=== PATIENT | female | born 1940 | race African-American/Black ===

== ENCOUNTER 2020-07-03 12:02 | Emergency (ER) | payer OTHER ==
[~2020-07-03] VITALS: Ht 162.6 cm; Wt 55.0 kg
[2020-07-03] MEDS ORDERED: SODIUM CHLORIDE 0.9% 1,000 ML IV ONE (12:30)
[2020-07-03 12:42] LABS: BASOPHILS % 0.3 % (0.0-2.0); EOSINOPHILS % 0.1 % (0.0-5.0); HEMATOCRIT. 47.1 % (36.0-48.0); HEMOGLOBIN. 15.2 g/dL (12.0-16.0); LYMPHOCYTES % 15.2 % (20.0-50.0); MEAN CORPUSCULAR HEMOGLOBIN 27.5 pg (28.0-32.0); MEAN CORPUSCULAR VOLUME 85.5 fL (81.0-99.0); MONOCYTES % 3.3 % (2.0-8.0); NEUTROPHILS % 81.1 % (40.0-76.0); PLATELET 127 x1000/uL (130-400); RED BLOOD CELL COUNT 5.51 mill/uL (4.2-5.4); RED CELL DISTRIBUTION WIDTH 16.3 % (11.6-14.6)
[2020-07-03 12:51] LABS: CHLORIDE 107 mEq/L (98-107)
[2020-07-03 15:42] LABS: CLARITY URINE CLOUDY (CLEAR); COLOR URINE DK YELLOW (YELLOW); KETONES URINE TRACE (NEGATIVE); LEUKOCYTE ESTERASE URINE NEGATIVE (NEGATIVE); NITRITE URINE NEGATIVE (NEGATIVE); OCCULT BLOOD URINE NEGATIVE (NEGATIVE); PROTEIN URINE 3+ (NEGATIVE); SPECIFIC GRAVITY URINE 1.023 (1.005-1.030)
[2020-07-03 17:29] VITALS: BP 178/94
== END 2020-07-03 17:30 | disposition short-term general hospital (02) ==
LOC: ER 12:08
DX: N28.9 Disorder of kidney and ureter, unspecified (principal); E86.0 Dehydration; R53.1 Weakness; I48.91 Unspecified atrial fibrillation; J44.9 Chronic obstructive pulmonary disease, unspecified; E11.9 Type 2 diabetes mellitus without complications; I10 Essential (primary) hypertension; J45.909 Unspecified asthma, uncomplicated; Z86.73 Personal history of transient ischemic attack (TIA), and cerebral infarction without residual deficits; Z79.01 Long term (current) use of anticoagulants
CPT/HCPCS: 36415; 71045; 80053; 81003; 84484; 85025; 93005; 96360; 96361; 99285; J7030

== ENCOUNTER 2020-07-22 10:11 | Emergency (ER) | payer OTHER, MEDICARE ==
[~2020-07-22] VITALS: Ht 165.1 cm; Wt 70.0 kg
[2020-07-22 11:00] LABS: BASOPHILS % 0.5 % (0.0-2.0); EOSINOPHILS % 0.7 % (0.0-5.0); HEMATOCRIT. 41.5 % (36.0-48.0); HEMOGLOBIN. 13.4 g/dL (12.0-16.0); LYMPHOCYTES % 20.8 % (20.0-50.0); MEAN CORPUSCULAR HEMOGLOBIN 27.5 pg (28.0-32.0); MEAN CORPUSCULAR VOLUME 85.3 fL (81.0-99.0); MEAN PLATELET VOLUME 8.1 fl (7.4-10.4); MONOCYTES % 8.3 % (2.0-8.0); NEUTROPHILS % 69.7 % (40.0-76.0); PLATELET 131 x1000/uL (130-400); RED BLOOD CELL COUNT 4.87 mill/uL (4.2-5.4); RED CELL DISTRIBUTION WIDTH 17.7 % (11.6-14.6)
[2020-07-22 11:07] LABS: CHLORIDE 105 mEq/L (98-107)
[2020-07-22] MEDS ORDERED: AZITHROMYCIN 500 MG in DEXT 5% WATER 250 ML IV SCH (11:30)
[2020-07-22] MEDS ORDERED: CEFTRIAXONE 1 G PREMIX 50 ML IV ONE (11:30)
[2020-07-22 16:30] VITALS: BP 148/79
== END 2020-07-22 18:20 | disposition short-term general hospital (02) ==
LOC: ER 10:33
DX: R41.82 Altered mental status, unspecified (principal); J18.9 Pneumonia, unspecified organism; I10 Essential (primary) hypertension; E11.9 Type 2 diabetes mellitus without complications; I48.91 Unspecified atrial fibrillation; Z20.822 Contact with and (suspected) exposure to COVID-19; Z88.8 Allergy status to other drugs, medicaments and biological substances; Z86.73 Personal history of transient ischemic attack (TIA), and cerebral infarction without residual deficits
CPT/HCPCS: 36415; 70450; 71045; 80053; 83880; 84484; 85025; 87426; 93005; 96365; 99285; J0456; J0696; J7060

== ENCOUNTER 2020-09-03 17:11 | Inpatient (IN) | payer MEDICARE, OTHER ==
[~2020-09-03] VITALS: Ht 165.1 cm; Wt 55.4 kg
[2020-09-03] MEDS ORDERED: ONDANSETRON HCL 4MG/2ML INJ IV STA (17:46)
[2020-09-03] MEDS ORDERED: MORPHINE SULFATE 4 MG/ML CPJ (NOT FOR IM USE) IV STA (17:46)
[2020-09-03 18:47] LABS: BASOPHILS % 0.2 % (0.0-2.0); EOSINOPHILS % 0.1 % (0.0-5.0); HEMATOCRIT. 32.5 % (36.0-48.0); HEMOGLOBIN. 10.6 g/dL (12.0-16.0); LYMPHOCYTES % 14.2 % (20.0-50.0); MEAN CORPUSCULAR HEMOGLOBIN 28.4 pg (28.0-32.0); MEAN CORPUSCULAR VOLUME 87.2 fL (81.0-99.0); MEAN PLATELET VOLUME 8.1 fl (7.4-10.4); MONOCYTES % 3.7 % (2.0-8.0); NEUTROPHILS % 81.8 % (40.0-76.0); PLATELET 156 x1000/uL (130-400); RED BLOOD CELL COUNT 3.72 mill/uL (4.2-5.4); RED CELL DISTRIBUTION WIDTH 18.3 % (11.6-14.6)
[2020-09-03 18:53] LABS: CHLORIDE 102 mEq/L (98-107)
[2020-09-03 18:56] LABS: INR 1.2
[2020-09-03 18:58] LABS: ETHANOL BLOOD < 10 mg/dL
[2020-09-03] MEDS ORDERED: FUROSEMIDE 20MG/2ML VIAL IVP ONE (22:00)
[2020-09-03] MEDS ORDERED: LEVOFLOXACIN 750MG PREMIX 150 ML IV ONE (22:00)
[2020-09-03 22:02] LABS: CLARITY URINE TURBID (CLEAR); COLOR URINE YELLOW (YELLOW); KETONES URINE NEGATIVE (NEGATIVE); LEUKOCYTE ESTERASE URINE NEGATIVE (NEGATIVE); NITRITE URINE NEGATIVE (NEGATIVE); OCCULT BLOOD URINE NEGATIVE (NEGATIVE); PROTEIN URINE 2+ (NEGATIVE); SPECIFIC GRAVITY URINE 1.015 (1.005-1.030); UROBILINOGEN URINE 0.2 E.U./dL (0.2-1.0)
[2020-09-03 22:15] LABS: *AMPHETAMINES SCREEN URINE NEGATIVE (NEGATIVE)
[2020-09-03 22:16] LABS: *BARBITURATES SCREEN URINE NEGATIVE (NEGATIVE); *BENZODIAZEPINES SCREEN URINE NEGATIVE (NEGATIVE); *COCAINE SCREEN URINE NEGATIVE (NEGATIVE); METHADONE URINE SCREEN NEGATIVE (NEGATIVE); OPIATES URINE SCREEN NEGATIVE (NEGATIVE); PHENCYCLIDINE URINE SCREEN NEGATIVE (NEGATIVE)
[2020-09-03 22:17] LABS: CANNABINOID URINE SCREEN NEGATIVE (NEGATIVE)
[2020-09-04] VITALS (7 sets, daily range): BP systolic 116–135; BP diastolic 49–80
[2020-09-04] MEDS ORDERED: MORPHINE SULFATE 2 MG/ML CPJ (NOT FOR IM USE) IV PRN (03:45)
[2020-09-04] MEDS ORDERED: ALBUTEROL 6.7GM HFA INHALER ORI PRN (03:45)
[2020-09-04] MEDS ORDERED: CLONIDINE 0.1MG TABLET PO PRN (03:45)
[2020-09-04 10:10] LABS: BASOPHILS % 0.1 % (0.0-2.0); HEMATOCRIT. 30.1 % (36.0-48.0); HEMOGLOBIN. 9.5 g/dL (12.0-16.0); LYMPHOCYTES % 10.5 % (20.0-50.0); MEAN CORPUSCULAR HEMOGLOBIN 28.3 pg (28.0-32.0); MEAN CORPUSCULAR VOLUME 89.3 fL (81.0-99.0); MEAN PLATELET VOLUME 7.9 fl (7.4-10.4); MONOCYTES % 6.9 % (2.0-8.0); NEUTROPHILS % 82.5 % (40.0-76.0); PLATELET 133 x1000/uL (130-400); RED BLOOD CELL COUNT 3.37 mill/uL (4.2-5.4); RED CELL DISTRIBUTION WIDTH 17.9 % (11.6-14.6)
[2020-09-04 10:14] LABS: CHLORIDE 104 mEq/L (98-107)
[2020-09-04 10:25] LABS: CREATINE KINASE 44 IU/L (26-192)
[2020-09-04 10:27] LABS: CREATINE KINASE MB FRACTION 2.2 ng/mL (0.5-3.6)
[2020-09-04] MEDS ORDERED: ENOXAPARIN 30MG/0.3ML SYR SUBCUT SCH (13:00)
[2020-09-04] MEDS: PIPERACILLIN/TAZOBACTAM 3.375 G in DEXT 5% WATER 100 ML IV SCH ×2 (14:25→20:05)
[2020-09-04] MEDS ORDERED: DEXTROSE 50% WATER 50ML SYRINGE IV PRN (18:00)
[2020-09-04] MEDS: INSULIN LISPRO 100 UNITS/ML SUBCUT SCH ×2 (18:20→20:42)
[2020-09-04] MEDS: BLOOD SUGAR DIAGNOSTIC STRIP TEST SCH ×2 (18:30→20:43)
[2020-09-04] MEDS ORDERED: ENOXAPARIN 40MG/0.4ML SYR SUBCUT NR (19:00)
[2020-09-04 23:15] LABS: CREATINE KINASE 42 IU/L (26-192)
[2020-09-05] VITALS (11 sets, daily range): BP systolic 92–149; BP diastolic 54–108
[2020-09-05] MEDS: FUROSEMIDE 40MG/4ML VIAL IVP SCH ×2 (02:05→05:18)
[2020-09-05] MEDS: PIPERACILLIN/TAZOBACTAM 3.375 G in DEXT 5% WATER 100 ML IV SCH ×4 (02:05→20:20)
[2020-09-05 06:26] LABS: CREATINE KINASE 103 IU/L (26-192); CREATINE KINASE MB FRACTION 2.1 ng/mL (0.5-3.6)
[2020-09-05] MEDS: BLOOD SUGAR DIAGNOSTIC STRIP TEST SCH ×4 (07:37→20:20)
[2020-09-05] MEDS: INSULIN LISPRO 100 UNITS/ML SUBCUT SCH ×4 (07:38→20:20)
[2020-09-05] MEDS ORDERED: FUROSEMIDE 40MG/4ML VIAL IVP SCH (09:00)
[2020-09-05] MEDS: ENOXAPARIN 60MG/0.6ML SYR SUBCUT SCH (09:00)
[2020-09-05 09:08] LABS: BG BASE EXCESS 1.3 mmol/L (-2.0-2.0); BG CARBOXYHEMOGLOBIN 0.1 % (0.5-1.5); BG DEOXYHEMOGLOBIN 8.7 % (0.0-5.0); BG FRACTION INSPIRED OXYGEN 99.8; BG HCO3 ACT 29.8 mmol/L (22.0-26.0); BG METHEMOGLOBIN 0.4 % (0.0-1.5); BG OXYGEN SATURATION 91.3 % (92.0-98.5); BG OXYHEMOGLOBIN 90.8 % (94.0-97.0); BG PCO2 69.2 mmHg (35.0-45.0); BG PH 7.252 (7.350-7.450); BG PO2 63.1 mmHg (75.0-100.0); BG SAMPLE SITE LEFT RADIAL; BG TOTAL HEMOGLOBIN 10.8 g/dL (12.0-18.0); BG VENT MODE MASK - NRB
[2020-09-05 12:10] LABS: BASOPHILS % 0.4 % (0.0-2.0); EOSINOPHILS % 0.2 % (0.0-5.0); HEMATOCRIT. 31.1 % (36.0-48.0); HEMOGLOBIN. 9.6 g/dL (12.0-16.0); LYMPHOCYTES % 14.3 % (20.0-50.0); MEAN CORPUSCULAR HEMOGLOBIN 28.3 pg (28.0-32.0); MEAN CORPUSCULAR VOLUME 92.1 fL (81.0-99.0); MONOCYTES % 8.6 % (2.0-8.0); NEUTROPHILS % 76.5 % (40.0-76.0); PLATELET 135 x1000/uL (130-400); RED BLOOD CELL COUNT 3.38 mill/uL (4.2-5.4); RED CELL DISTRIBUTION WIDTH 18.7 % (11.6-14.6)
[2020-09-05] MEDS: FUROSEMIDE 100MG/10ML VIAL IVP SCH ×2 (14:49→17:35)
[2020-09-05] MEDS ORDERED: ENOXAPARIN 80MG/0.8ML SYR SUBCUT SCH (15:00)
[2020-09-05 17:38] LABS: BG BASE EXCESS 4.5 mmol/L (-2.0-2.0); BG CARBOXYHEMOGLOBIN 0.5 % (0.5-1.5); BG DEOXYHEMOGLOBIN 11.4 % (0.0-5.0); BG FRACTION INSPIRED OXYGEN 100; BG HCO3 ACT 31.5 mmol/L (22.0-26.0); BG METHEMOGLOBIN 0.4 % (0.0-1.5); BG OXYGEN SATURATION 88.5 % (92.0-98.5); BG OXYHEMOGLOBIN 87.7 % (94.0-97.0); BG PCO2 59.4 mmHg (35.0-45.0); BG PH 7.343 (7.350-7.450); BG PO2 53.2 mmHg (75.0-100.0); BG SAMPLE SITE RIGHT BRACHIAL; BG TOTAL HEMOGLOBIN 11.2 g/dL (12.0-18.0); BG VENT MODE MASK - BIPAP
[2020-09-05] MEDS ORDERED: FUROSEMIDE 100MG/10ML VIAL IVP SCH (18:00)
[2020-09-05 23:13] LABS: BG BASE EXCESS 4.9 mmol/L (-2.0-2.0); BG CARBOXYHEMOGLOBIN 0.1 % (0.5-1.5); BG FRACTION INSPIRED OXYGEN 100; BG METHEMOGLOBIN 0.3 % (0.0-1.5); BG OXYGEN SATURATION 84.9 % (92.0-98.5); BG OXYHEMOGLOBIN 84.6 % (94.0-97.0); BG PH 7.423 (7.350-7.450); BG PO2 44.5 mmHg (75.0-100.0); BG SAMPLE SITE RIGHT BRACHIAL; BG TOTAL HEMOGLOBIN 10.7 g/dL (12.0-18.0); BG VENT MODE MASK - BIPAP
[2020-09-06] VITALS (50 sets, daily range): BP systolic 101–164; BP diastolic 58–105
[2020-09-06] MEDS ORDERED: ALBUTEROL (0.083%) 2.5MG/3ML NEB HHN PRN (00:15)
[2020-09-06] MEDS: PIPERACILLIN/TAZOBACTAM 3.375 G in DEXT 5% WATER 100 ML IV SCH ×4 (01:41→21:10)
[2020-09-06] MEDS: FUROSEMIDE 100MG/10ML VIAL IVP SCH ×2 (05:15→18:25)
[2020-09-06 06:05] LABS: BASOPHILS % 0.2 % (0.0-2.0); EOSINOPHILS % 0.1 % (0.0-5.0); HEMATOCRIT. 34.6 % (36.0-48.0); HEMOGLOBIN. 10.7 g/dL (12.0-16.0); LYMPHOCYTES % 15.5 % (20.0-50.0); MEAN CORPUSCULAR HEMOGLOBIN 27.6 pg (28.0-32.0); MEAN PLATELET VOLUME 7.8 fl (7.4-10.4); MONOCYTES % 7.9 % (2.0-8.0); NEUTROPHILS % 76.3 % (40.0-76.0); PLATELET 147 x1000/uL (130-400); RED BLOOD CELL COUNT 3.88 mill/uL (4.2-5.4); RED CELL DISTRIBUTION WIDTH 18.1 % (11.6-14.6)
[2020-09-06] MEDS: BLOOD SUGAR DIAGNOSTIC STRIP TEST SCH ×4 (06:30→21:10)
[2020-09-06] MEDS: INSULIN LISPRO 100 UNITS/ML SUBCUT SCH ×4 (07:00→21:00)
[2020-09-06] MEDS: ENOXAPARIN 60MG/0.6ML SYR SUBCUT SCH (08:54)
[2020-09-06] MEDS ORDERED: LIDOCAINE HCL 1% 20ML VIAL (Pyxis) INJ ONE (09:21)
[2020-09-06] MEDS ORDERED: HYDRALAZINE 20MG/ML VIAL IV PRN (12:30)
[2020-09-06] MEDS: AMLODIPINE 10MG TABLET PO SCH (12:36)
[2020-09-06] MEDS: SILDENAFIL CITRATE 20MG TABLET PO SCH ×2 (13:35→21:09)
[2020-09-07] VITALS (47 sets, daily range): BP systolic 116–156; BP diastolic 58–98
[2020-09-07] MEDS: PIPERACILLIN/TAZOBACTAM 3.375 G in DEXT 5% WATER 100 ML IV SCH ×4 (01:48→20:14)
[2020-09-07 05:31] LABS: BASOPHILS % 0.3 % (0.0-2.0); EOSINOPHILS % 0.6 % (0.0-5.0); HEMATOCRIT. 29.1 % (36.0-48.0); HEMOGLOBIN. 9.5 g/dL (12.0-16.0); MEAN CORPUSCULAR VOLUME 85.7 fL (81.0-99.0); MEAN PLATELET VOLUME 8.2 fl (7.4-10.4); MONOCYTES % 10.2 % (2.0-8.0); NEUTROPHILS % 74.9 % (40.0-76.0); PLATELET 125 x1000/uL (130-400); RED CELL DISTRIBUTION WIDTH 17.6 % (11.6-14.6)
[2020-09-07] MEDS: FUROSEMIDE 100MG/10ML VIAL IVP SCH ×2 (06:00→17:41)
[2020-09-07] MEDS: SILDENAFIL CITRATE 20MG TABLET PO SCH ×2 (06:23→14:25)
[2020-09-07] MEDS: INSULIN LISPRO 100 UNITS/ML SUBCUT SCH ×4 (06:25→21:00)
[2020-09-07] MEDS: BLOOD SUGAR DIAGNOSTIC STRIP TEST SCH ×4 (06:25→21:00)
[2020-09-07 07:38] LABS: BG BASE EXCESS 13.9 mmol/L (-2.0-2.0); BG CARBOXYHEMOGLOBIN 0.3 % (0.5-1.5); BG DEOXYHEMOGLOBIN 9.9 % (0.0-5.0); BG HCO3 ACT 38.6 mmol/L (22.0-26.0); BG METHEMOGLOBIN 0.3 % (0.0-1.5); BG OXYHEMOGLOBIN 89.5 % (94.0-97.0); BG PCO2 49.2 mmHg (35.0-45.0); BG PH 7.512 (7.350-7.450); BG PO2 52.9 mmHg (75.0-100.0); BG SAMPLE SITE RIGHT BRACHIAL; BG TOTAL HEMOGLOBIN 10.2 g/dL (12.0-18.0); BG VENT MODE MASK - SIMPLE
[2020-09-07] MEDS: ENOXAPARIN 60MG/0.6ML SYR SUBCUT SCH (08:33)
[2020-09-07] MEDS: AMLODIPINE 10MG TABLET PO SCH (09:51)
[2020-09-07] MEDS: POTASSIUM CHLORIDE 20MEQ TABLET SR PO SCH (09:51)
[2020-09-07] MEDS ORDERED: POTASSIUM CHLORIDE INJ 40 MEQ in DEXT 5% WATER 250 ML IV NR (10:30)
[2020-09-07] MEDS ORDERED: MAGNESIUM 4 G PREMIX 100 ML IV NR (14:00)
[2020-09-08] VITALS (16 sets, daily range): BP systolic 98–142; BP diastolic 54–88
[2020-09-08] MEDS: SILDENAFIL CITRATE 20MG TABLET PO SCH ×4 (00:22→21:33)
[2020-09-08] MEDS: PIPERACILLIN/TAZOBACTAM 3.375 G in DEXT 5% WATER 100 ML IV SCH ×4 (02:06→21:01)
[2020-09-08] MEDS: BLOOD SUGAR DIAGNOSTIC STRIP TEST SCH ×4 (06:19→21:01)
[2020-09-08 06:47] LABS: BASOPHILS % 0.3 % (0.0-2.0); HEMATOCRIT. 29.8 % (36.0-48.0); HEMOGLOBIN. 9.8 g/dL (12.0-16.0); LYMPHOCYTES % 13.8 % (20.0-50.0); MEAN CORPUSCULAR HEMOGLOBIN 28.4 pg (28.0-32.0); MEAN CORPUSCULAR VOLUME 86.1 fL (81.0-99.0); MEAN PLATELET VOLUME 8.1 fl (7.4-10.4); MONOCYTES % 9.1 % (2.0-8.0); NEUTROPHILS % 75.8 % (40.0-76.0); PLATELET 121 x1000/uL (130-400); RED BLOOD CELL COUNT 3.47 mill/uL (4.2-5.4); RED CELL DISTRIBUTION WIDTH 17.6 % (11.6-14.6)
[2020-09-08] MEDS: INSULIN LISPRO 100 UNITS/ML SUBCUT SCH ×4 (07:20→21:00)
[2020-09-08] MEDS: FUROSEMIDE 100MG/10ML VIAL IVP SCH ×2 (07:53→17:23)
[2020-09-08 08:09] LABS: CHLORIDE 91 mEq/L (98-107)
[2020-09-08] MEDS: POTASSIUM CHLORIDE 20MEQ TABLET SR PO SCH ×3 (08:12→17:24)
[2020-09-08] MEDS: AMLODIPINE 10MG TABLET PO SCH (08:13)
[2020-09-08] MEDS: ENOXAPARIN 60MG/0.6ML SYR SUBCUT SCH ×2 (08:14→21:02)
[2020-09-08] MEDS ORDERED: POTASSIUM CHLORIDE INJ 40 MEQ in DEXT 5% WATER 250 ML IV NR (12:00)
[2020-09-09] VITALS (12 sets, daily range): BP systolic 108–138; BP diastolic 54–87
[2020-09-09] MEDS: PIPERACILLIN/TAZOBACTAM 3.375 G in DEXT 5% WATER 100 ML IV SCH ×3 (02:04→13:45)
[2020-09-09] MEDS: FUROSEMIDE 100MG/10ML VIAL IVP SCH ×2 (06:16→17:55)
[2020-09-09] MEDS: BLOOD SUGAR DIAGNOSTIC STRIP TEST SCH ×4 (06:17→21:09)
[2020-09-09] MEDS: SILDENAFIL CITRATE 20MG TABLET PO SCH ×3 (06:17→21:49)
[2020-09-09 06:58] LABS: BASOPHILS % 0.4 % (0.0-2.0); EOSINOPHILS % 1.8 % (0.0-5.0); HEMATOCRIT. 30.7 % (36.0-48.0); HEMOGLOBIN. 10.3 g/dL (12.0-16.0); LYMPHOCYTES % 21.7 % (20.0-50.0); MEAN CORPUSCULAR VOLUME 86.7 fL (81.0-99.0); MEAN PLATELET VOLUME 8.5 fl (7.4-10.4); MONOCYTES % 8.8 % (2.0-8.0); NEUTROPHILS % 67.3 % (40.0-76.0); PLATELET 124 x1000/uL (130-400); RED BLOOD CELL COUNT 3.54 mill/uL (4.2-5.4); RED CELL DISTRIBUTION WIDTH 17.4 % (11.6-14.6)
[2020-09-09 07:03] LABS: CHLORIDE 92 mEq/L (98-107)
[2020-09-09] MEDS: INSULIN LISPRO 100 UNITS/ML SUBCUT SCH ×4 (07:20→21:00)
[2020-09-09] MEDS: POTASSIUM CHLORIDE 20MEQ TABLET SR PO SCH ×2 (09:03→17:53)
[2020-09-09] MEDS: ENOXAPARIN 60MG/0.6ML SYR SUBCUT SCH ×2 (09:03→21:09)
[2020-09-09] MEDS: AMLODIPINE 10MG TABLET PO SCH (09:04)
[2020-09-09] MEDS: SPIRONOLACTONE 25MG TABLET PO SCH (13:22)
[2020-09-10] VITALS (12 sets, daily range): BP systolic 114–165; BP diastolic 37–89
[2020-09-10] MEDS: FUROSEMIDE 100MG/10ML VIAL IVP SCH ×2 (05:58→17:12)
[2020-09-10] MEDS: SILDENAFIL CITRATE 20MG TABLET PO SCH ×3 (05:59→21:07)
[2020-09-10] MEDS: BLOOD SUGAR DIAGNOSTIC STRIP TEST SCH ×4 (06:38→20:42)
[2020-09-10] MEDS: INSULIN LISPRO 100 UNITS/ML SUBCUT SCH ×4 (07:20→20:43)
[2020-09-10 07:22] LABS: BASOPHILS % 0.6 % (0.0-2.0); EOSINOPHILS % 1.7 % (0.0-5.0); HEMATOCRIT. 32.3 % (36.0-48.0); HEMOGLOBIN. 10.7 g/dL (12.0-16.0); LYMPHOCYTES % 23.9 % (20.0-50.0); MEAN CORPUSCULAR HEMOGLOBIN 28.7 pg (28.0-32.0); MEAN CORPUSCULAR VOLUME 86.7 fL (81.0-99.0); MEAN PLATELET VOLUME 8.1 fl (7.4-10.4); MONOCYTES % 10.2 % (2.0-8.0); NEUTROPHILS % 63.6 % (40.0-76.0); PLATELET 120 x1000/uL (130-400); RED BLOOD CELL COUNT 3.72 mill/uL (4.2-5.4); RED CELL DISTRIBUTION WIDTH 17.6 % (11.6-14.6)
[2020-09-10] MEDS: POTASSIUM CHLORIDE 20MEQ TABLET SR PO SCH ×2 (09:02→17:12)
[2020-09-10] MEDS: SPIRONOLACTONE 25MG TABLET PO SCH (09:03)
[2020-09-10] MEDS: AMLODIPINE 10MG TABLET PO SCH (09:03)
[2020-09-10] MEDS: ENOXAPARIN 60MG/0.6ML SYR SUBCUT SCH ×2 (09:03→21:08)
[2020-09-10 12:29] LABS: BG BASE EXCESS 17.3 mmol/L (-2.0-2.0); BG CARBOXYHEMOGLOBIN 0.2 % (0.5-1.5); BG DEOXYHEMOGLOBIN 5.8 % (0.0-5.0); BG FRACTION INSPIRED OXYGEN 32; BG HCO3 ACT 43.5 mmol/L (22.0-26.0); BG METHEMOGLOBIN 0.6 % (0.0-1.5); BG OXYGEN SATURATION 94.2 % (92.0-98.5); BG OXYHEMOGLOBIN 93.4 % (94.0-97.0); BG PCO2 58.6 mmHg (35.0-45.0); BG PH 7.488 (7.350-7.450); BG PO2 67.9 mmHg (75.0-100.0); BG SAMPLE SITE RIGHT RADIAL; BG TOTAL HEMOGLOBIN 12.1 g/dL (12.0-18.0); BG VENT MODE NASAL CANNULA
[2020-09-11] VITALS (13 sets, daily range): BP systolic 110–164; BP diastolic 58–106
[2020-09-11] MEDS: FUROSEMIDE 100MG/10ML VIAL IVP SCH (05:58)
[2020-09-11] MEDS: SILDENAFIL CITRATE 20MG TABLET PO SCH ×3 (05:59→22:01)
[2020-09-11 06:19] LABS: BASOPHILS % 0.7 % (0.0-2.0); EOSINOPHILS % 1.5 % (0.0-5.0); HEMATOCRIT. 33.5 % (36.0-48.0); LYMPHOCYTES % 26.5 % (20.0-50.0); MEAN CORPUSCULAR HEMOGLOBIN 28.5 pg (28.0-32.0); MEAN CORPUSCULAR VOLUME 86.5 fL (81.0-99.0); MEAN PLATELET VOLUME 8.4 fl (7.4-10.4); MONOCYTES % 13.1 % (2.0-8.0); NEUTROPHILS % 58.2 % (40.0-76.0); PLATELET 135 x1000/uL (130-400); RED BLOOD CELL COUNT 3.87 mill/uL (4.2-5.4); RED CELL DISTRIBUTION WIDTH 17.9 % (11.6-14.6)
[2020-09-11] MEDS: BLOOD SUGAR DIAGNOSTIC STRIP TEST SCH ×4 (06:26→20:36)
[2020-09-11] MEDS: INSULIN LISPRO 100 UNITS/ML SUBCUT SCH ×4 (07:20→20:47)
[2020-09-11] MEDS: ENOXAPARIN 60MG/0.6ML SYR SUBCUT SCH ×2 (09:00→20:46)
[2020-09-11 09:43] LABS: BG BASE EXCESS 10.9 mmol/L (-2.0-2.0); BG CARBOXYHEMOGLOBIN 0.6 % (0.5-1.5); BG DEOXYHEMOGLOBIN 8.8 % (0.0-5.0); BG FRACTION INSPIRED OXYGEN 32; BG HCO3 ACT 36.1 mmol/L (22.0-26.0); BG METHEMOGLOBIN 0.2 % (0.0-1.5); BG OXYGEN SATURATION 91.1 % (92.0-98.5); BG OXYHEMOGLOBIN 90.4 % (94.0-97.0); BG PCO2 50.8 mmHg (35.0-45.0); BG PO2 60.3 mmHg (75.0-100.0); BG SAMPLE SITE LEFT BRACHIAL; BG TOTAL HEMOGLOBIN 11.8 g/dL (12.0-18.0); BG VENT MODE NASAL CANNULA
[2020-09-11] MEDS: AMLODIPINE 10MG TABLET PO SCH (10:24)
[2020-09-11] MEDS: POTASSIUM CHLORIDE 20MEQ TABLET SR PO SCH ×2 (10:25→17:00)
[2020-09-11] MEDS: SPIRONOLACTONE 25MG TABLET PO SCH (10:25)
[2020-09-11] MEDS ORDERED: IPRATROPIUM/ALBUTEROL 0.5-3(2.5)MG/3ML NEB HHN PRN (14:00)
[2020-09-11 15:16] LABS: BG BASE EXCESS 15.9 mmol/L (-2.0-2.0); BG CARBOXYHEMOGLOBIN 0.5 % (0.5-1.5); BG FRACTION INSPIRED OXYGEN 21; BG HCO3 ACT 39.7 mmol/L (22.0-26.0); BG METHEMOGLOBIN 0.3 % (0.0-1.5); BG OXYGEN SATURATION 69.8 % (92.0-98.5); BG OXYHEMOGLOBIN 69.2 % (94.0-97.0); BG PCO2 44.2 mmHg (35.0-45.0); BG PH 7.571 (7.350-7.450); BG PO2 33.4 mmHg (75.0-100.0); BG SAMPLE SITE LEFT RADIAL; BG TOTAL HEMOGLOBIN 12.1 g/dL (12.0-18.0); BG VENT MODE ROOM AIR
[2020-09-11] MEDS: FUROSEMIDE 40MG/4ML VIAL IVP SCH (18:31)
[2020-09-11] MEDS: IPRATROPIUM/ALBUTEROL 0.5-3(2.5)MG/3ML NEB HHN SCH (21:30)
[2020-09-12] VITALS (14 sets, daily range): BP systolic 103–143; BP diastolic 39–84
[2020-09-12] MEDS: IPRATROPIUM/ALBUTEROL 0.5-3(2.5)MG/3ML NEB HHN SCH ×4 (02:04→20:27)
[2020-09-12] MEDS: FUROSEMIDE 40MG/4ML VIAL IVP SCH ×2 (05:26→18:16)
[2020-09-12] MEDS: SILDENAFIL CITRATE 20MG TABLET PO SCH ×3 (05:27→22:41)
[2020-09-12] MEDS: BLOOD SUGAR DIAGNOSTIC STRIP TEST SCH ×4 (06:26→21:02)
[2020-09-12] MEDS: INSULIN LISPRO 100 UNITS/ML SUBCUT SCH ×4 (07:20→21:13)
[2020-09-12] MEDS: AMLODIPINE 10MG TABLET PO SCH (09:00)
[2020-09-12] MEDS: ENOXAPARIN 60MG/0.6ML SYR SUBCUT SCH ×2 (09:33→21:02)
[2020-09-12] MEDS: SPIRONOLACTONE 25MG TABLET PO SCH (09:33)
[2020-09-12] MEDS: POTASSIUM CHLORIDE 20MEQ TABLET SR PO SCH ×2 (09:34→17:47)
[2020-09-12] MEDS: PIPERACILLIN/TAZOBACTAM 2.25 G in DEXTROSE 5% WATER 50 ML IV SCH ×2 (11:55→18:16)
[2020-09-12] MEDS ORDERED: PIPERACILLIN/TAZOBACTAM 3.375 G/VIAL IV SCH (12:00)
[2020-09-12] MEDS: METOPROLOL TARTRATE 25MG TABLET PO SCH ×2 (17:47→23:00)
[2020-09-13] VITALS (12 sets, daily range): BP systolic 102–138; BP diastolic 51–84
[2020-09-13] MEDS: IPRATROPIUM/ALBUTEROL 0.5-3(2.5)MG/3ML NEB HHN SCH ×3 (00:54→20:21)
[2020-09-13] MEDS: BLOOD SUGAR DIAGNOSTIC STRIP TEST SCH ×4 (05:52→21:09)
[2020-09-13] MEDS: SILDENAFIL CITRATE 20MG TABLET PO SCH ×3 (05:52→22:48)
[2020-09-13] MEDS: INSULIN LISPRO 100 UNITS/ML SUBCUT SCH ×4 (07:20→21:00)
[2020-09-13] MEDS: POTASSIUM CHLORIDE 20MEQ TABLET SR PO SCH ×2 (07:59→18:31)
[2020-09-13] MEDS: FUROSEMIDE 40MG TABLET PO SCH ×2 (08:00→18:31)
[2020-09-13] MEDS: AMLODIPINE 10MG TABLET PO SCH (08:00)
[2020-09-13] MEDS: METOPROLOL TARTRATE 25MG TABLET PO SCH ×2 (08:00→21:08)
[2020-09-13] MEDS: SPIRONOLACTONE 25MG TABLET PO SCH (08:00)
[2020-09-13] MEDS: ENOXAPARIN 60MG/0.6ML SYR SUBCUT SCH ×2 (08:00→21:08)
[2020-09-13] MEDS: PIPERACILLIN/TAZOBACTAM 2.25 G in DEXTROSE 5% WATER 50 ML IV SCH ×4 (08:03→18:31)
[2020-09-13 10:40] LABS: BASOPHILS % 0.8 % (0.0-2.0); EOSINOPHILS % 1.5 % (0.0-5.0); HEMATOCRIT. 32.2 % (36.0-48.0); HEMOGLOBIN. 10.7 g/dL (12.0-16.0); LYMPHOCYTES % 27.2 % (20.0-50.0); MEAN CORPUSCULAR HEMOGLOBIN 29.1 pg (28.0-32.0); MEAN CORPUSCULAR VOLUME 87.9 fL (81.0-99.0); MEAN PLATELET VOLUME 8.3 fl (7.4-10.4); MONOCYTES % 12.2 % (2.0-8.0); NEUTROPHILS % 58.3 % (40.0-76.0); PLATELET 133 x1000/uL (130-400); RED BLOOD CELL COUNT 3.66 mill/uL (4.2-5.4); RED CELL DISTRIBUTION WIDTH 17.9 % (11.6-14.6)
[2020-09-14] VITALS (12 sets, daily range): BP systolic 101–143; BP diastolic 42–82
[2020-09-14] MEDS: PIPERACILLIN/TAZOBACTAM 2.25 G in DEXTROSE 5% WATER 50 ML IV SCH ×5 (00:29→23:45)
[2020-09-14] MEDS: IPRATROPIUM/ALBUTEROL 0.5-3(2.5)MG/3ML NEB HHN SCH ×4 (01:55→20:42)
[2020-09-14] MEDS: SILDENAFIL CITRATE 20MG TABLET PO SCH ×3 (05:45→22:00)
[2020-09-14] MEDS: INSULIN LISPRO 100 UNITS/ML SUBCUT SCH ×4 (07:06→21:00)
[2020-09-14] MEDS: BLOOD SUGAR DIAGNOSTIC STRIP TEST SCH ×4 (07:06→21:24)
[2020-09-14] MEDS: FUROSEMIDE 40MG TABLET PO SCH ×2 (09:50→17:32)
[2020-09-14] MEDS: AMLODIPINE 10MG TABLET PO SCH (09:50)
[2020-09-14] MEDS: METOPROLOL TARTRATE 25MG TABLET PO SCH ×2 (09:50→21:00)
[2020-09-14] MEDS: SPIRONOLACTONE 25MG TABLET PO SCH (09:51)
[2020-09-14] MEDS: POTASSIUM CHLORIDE 20MEQ TABLET SR PO SCH ×2 (09:51→17:31)
[2020-09-14] MEDS: ENOXAPARIN 60MG/0.6ML SYR SUBCUT SCH ×2 (09:51→21:24)
[2020-09-15] VITALS (10 sets, daily range): BP systolic 105–127; BP diastolic 63–99
[2020-09-15] MEDS: IPRATROPIUM/ALBUTEROL 0.5-3(2.5)MG/3ML NEB HHN SCH ×3 (01:43→14:01)
[2020-09-15] MEDS: PIPERACILLIN/TAZOBACTAM 2.25 G in DEXTROSE 5% WATER 50 ML IV SCH ×2 (05:33→12:48)
[2020-09-15] MEDS: SILDENAFIL CITRATE 20MG TABLET PO SCH ×3 (05:33→13:26)
[2020-09-15] MEDS: BLOOD SUGAR DIAGNOSTIC STRIP TEST SCH ×2 (06:11→12:13)
[2020-09-15] MEDS: INSULIN LISPRO 100 UNITS/ML SUBCUT SCH ×2 (07:20→12:13)
[2020-09-15] MEDS: FUROSEMIDE 40MG TABLET PO SCH (09:23)
[2020-09-15] MEDS: SPIRONOLACTONE 25MG TABLET PO SCH (09:23)
[2020-09-15] MEDS: METOPROLOL TARTRATE 25MG TABLET PO SCH (09:24)
[2020-09-15] MEDS: ENOXAPARIN 60MG/0.6ML SYR SUBCUT SCH (09:24)
[2020-09-15] MEDS: AMLODIPINE 10MG TABLET PO SCH (09:24)
[2020-09-15] MEDS: POTASSIUM CHLORIDE 20MEQ TABLET SR PO SCH (09:24)
[2020-09-15] MEDS ORDERED: FLUT1DIS3 INH (15:37)
[2020-09-15] MEDS ORDERED: AMLO10TA80 PO (15:37)
[2020-09-15] MEDS ORDERED: APIX5TAB MT (15:37)
[2020-09-15] MEDS ORDERED: REV20 PO (15:37)
[2020-09-15] MEDS ORDERED: FURO40TA5 PO (15:37)
[2020-09-15] MEDS ORDERED: POTA20TA82 MT (15:37)
[2020-09-15] MEDS ORDERED: ALBU18HF2 IH (15:37)
[2020-09-15] MEDS ORDERED: METO25TA6 PO (15:37)
== END 2020-09-15 17:30 | disposition home or self-care (01) | DRG 291 ==
LOC: ER 17:26 → EDBD 23:51 → 7WST 23:51 → ENRESERV 09-04 00:18 → 5EST 09-05 10:54 → MICUNO 09-05 23:55 → 5EST 09-06 00:11 → MICUNO 09-06 00:13 → 3WST 09-08 03:00
PROVIDERS: ADMIT Internal Medicine Nephrology; ATTEND Internal Medicine Nephrology
PROC: 5A09457 Assistance with Respiratory Ventilation, 24-96 Consecutive Hours, Continuous Positive Airway Pressure (ICD-10-PCS; principal; 2020-09-05)
PROC: 02HV33Z Insertion of Infusion Device into Superior Vena Cava, Percutaneous Approach (ICD-10-PCS; 2020-09-06)
PROC: B548ZZA Ultrasonography of Superior Vena Cava, Guidance (ICD-10-PCS; 2020-09-06)
DX: I13.0 Hypertensive heart and chronic kidney disease with heart failure and stage 1 through stage 4 chronic kidney disease, or unspecified chronic kidney disease (principal); J96.01 Acute respiratory failure with hypoxia; J96.02 Acute respiratory failure with hypercapnia; I50.33 Acute on chronic diastolic (congestive) heart failure; N17.0 Acute kidney failure with tubular necrosis; J18.9 Pneumonia, unspecified organism; J44.1 Chronic obstructive pulmonary disease with (acute) exacerbation; J44.0 Chronic obstructive pulmonary disease with (acute) lower respiratory infection; I48.21 Permanent atrial fibrillation; E87.1 Hypo-osmolality and hyponatremia; G93.40 Encephalopathy, unspecified; N18.9 Chronic kidney disease, unspecified; K59.00 Constipation, unspecified; G40.909 Epilepsy, unspecified, not intractable, without status epilepticus; F03.90 Unspecified dementia, unspecified severity, without behavioral disturbance, psychotic disturbance, mood disturbance, and anxiety; E11.22 Type 2 diabetes mellitus with diabetic chronic kidney disease; D64.9 Anemia, unspecified; Z20.822 Contact with and (suspected) exposure to COVID-19; I27.29 Other secondary pulmonary hypertension; I27.81 Cor pulmonale (chronic); I36.1 Nonrheumatic tricuspid (valve) insufficiency; L89.90 Pressure ulcer of unspecified site, unspecified stage; Z99.81 Dependence on supplemental oxygen; Z86.73 Personal history of transient ischemic attack (TIA), and cerebral infarction without residual deficits
CPT/HCPCS: 36415; 36600; 71045; 71275; 74176; 76937; 80048; 80053; 80305; 80320; 81003; 82375; 82550; 82553; 82805; 82962; 83036; 83605; 83735; 83880; 84145; 84484; 85025; 86850; 86900; 93005; 93306; 93308; 93923; 93970; 94640; 94660; 97116; 97163; 97530; 99285; A6261; C1725; J1650; J1815; J1940; J1956; J2270; J2405; J2543; J3475; J3480; J3490; J7040; J7060; Q9967; U0003; U0005; A4315; G0480

== ENCOUNTER 2020-11-28 12:11 | Inpatient (IN) | payer MEDICARE ==
[~2020-11-28] VITALS: Ht 165.1 cm; Wt 66.5 kg
[~2020-11-28 12:11] MED LIST: ALBU18HF2 IH; AMLO10TA80 PO; APIX5TAB MT; FLUT1DIS3 INH; FURO40TA5 PO; METO25TA6 PO; POTA20TA82 MT; REV20 PO
[2020-11-28] MEDS ORDERED: FUROSEMIDE 40MG/4ML VIAL IVP NR (14:00)
[2020-11-28 14:01] LABS: BASOPHILS % 0.6 % (0.0-2.0); EOSINOPHILS % 0.8 % (0.0-5.0); HEMATOCRIT. 27.9 % (36.0-48.0); HEMOGLOBIN. 9.4 g/dL (12.0-16.0); LYMPHOCYTES % 17.9 % (20.0-50.0); MEAN CORPUSCULAR HEMOGLOBIN 27.6 pg (28.0-32.0); MONOCYTES % 7.5 % (2.0-8.0); NEUTROPHILS % 73.2 % (40.0-76.0); PLATELET 155 x1000/uL (130-400); RED BLOOD CELL COUNT 3.41 mill/uL (4.2-5.4); RED CELL DISTRIBUTION WIDTH 19.7 % (11.6-14.6)
[2020-11-28 14:09] LABS: CHLORIDE 108 mEq/L (98-107)
[2020-11-28 14:26] LABS: CLARITY URINE CLEAR (CLEAR); COLOR URINE YELLOW (YELLOW); KETONES URINE NEGATIVE (NEGATIVE); LEUKOCYTE ESTERASE URINE NEGATIVE (NEGATIVE); NITRITE URINE NEGATIVE (NEGATIVE); OCCULT BLOOD URINE NEGATIVE (NEGATIVE); PROTEIN URINE 2+ (NEGATIVE); SPECIFIC GRAVITY URINE 1.018 (1.005-1.030)
[2020-11-28] MEDS ORDERED: IOHEXOL-350 100 ML BOTTLE ONE (18:51)
[2020-11-28] MEDS ORDERED: ONDANSETRON HCL 4MG/2ML INJ IV PRN (19:45)
[2020-11-28] MEDS ORDERED: IPRATROPIUM/ALBUTEROL 0.5-3(2.5)MG/3ML NEB HHN PRN (19:45)
[2020-11-28] MEDS ORDERED: ACETAMINOPHEN 325MG TABLET PO PRN ×2 (19:45)
[2020-11-28] MEDS ORDERED: LORAZEPAM 0.5MG TABLET PO PRN (19:45)
[2020-11-28] MEDS ORDERED: DOCUSATE SODIUM 100MG CAPSULE PO PRN (19:45)
[2020-11-28] MEDS ORDERED: HYDROCODONE/ACETAMINOPHEN 5/325MG TABLET PO PRN (19:45)
[2020-11-28] MEDS ORDERED: CLONIDINE 0.1MG TABLET PO PRN (19:45)
[2020-11-28] MEDS ORDERED: NALOXONE HCL 0.4MG/ML VIAL IV PRN (20:00)
[2020-11-28 22:00] VITALS: BP 153/85
[2020-11-28] MEDS: FUROSEMIDE 40MG/4ML VIAL IVP SCH (22:48)
[2020-11-28] MEDS: LORAZEPAM 2MG/ML CPJ IV PRN (22:52)
[2020-11-28 23:16] LABS: BG BASE EXCESS 2.2 mmol/L (-2.0-2.0); BG CARBOXYHEMOGLOBIN 0.3 % (0.5-1.5); BG DEOXYHEMOGLOBIN 10.6 % (0.0-5.0); BG FRACTION INSPIRED OXYGEN 100; BG HCO3 ACT 29.4 mmol/L (22.0-26.0); BG METHEMOGLOBIN 0.4 % (0.0-1.5); BG OXYGEN SATURATION 89.3 % (92.0-98.5); BG OXYHEMOGLOBIN 88.7 % (94.0-97.0); BG PCO2 59.7 mmHg (35.0-45.0); BG SAMPLE SITE RIGHT BRACHIAL; BG TOTAL HEMOGLOBIN 10.3 g/dL (12.0-18.0); BG VENT MODE MASK - NRB
[2020-11-29] VITALS (13 sets, daily range): BP systolic 129–153; BP diastolic 65–88
[2020-11-29 06:05] LABS: BASOPHILS % 0.8 % (0.0-2.0); EOSINOPHILS % 0.5 % (0.0-5.0); HEMATOCRIT. 31.5 % (36.0-48.0); HEMOGLOBIN. 9.8 g/dL (12.0-16.0); LYMPHOCYTES % 16.5 % (20.0-50.0); MEAN CORPUSCULAR HEMOGLOBIN 26.1 pg (28.0-32.0); MEAN CORPUSCULAR VOLUME 84.1 fL (81.0-99.0); MEAN PLATELET VOLUME 8.1 fl (7.4-10.4); MONOCYTES % 5.3 % (2.0-8.0); NEUTROPHILS % 76.9 % (40.0-76.0); PLATELET 149 x1000/uL (130-400); RED BLOOD CELL COUNT 3.75 mill/uL (4.2-5.4)
[2020-11-29 06:12] LABS: PHOSPHORUS 3.1 mg/dL (2.5-4.9)
[2020-11-29 08:40] LABS: BG BASE EXCESS 3.4 mmol/L (-2.0-2.0); BG CARBOXYHEMOGLOBIN 0.4 % (0.5-1.5); BG DEOXYHEMOGLOBIN 1.4 % (0.0-5.0); BG FRACTION INSPIRED OXYGEN 100; BG HCO3 ACT 29.9 mmol/L (22.0-26.0); BG METHEMOGLOBIN 0.2 % (0.0-1.5); BG OXYGEN SATURATION 98.6 % (92.0-98.5); BG PCO2 55.7 mmHg (35.0-45.0); BG PH 7.348 (7.350-7.450); BG PO2 127.4 mmHg (75.0-100.0); BG SAMPLE SITE LEFT RADIAL; BG TOTAL HEMOGLOBIN 9.8 g/dL (12.0-18.0); BG TOTAL RESPIRATORY RATE 17 b/min; BG VENT MODE MASK - BIPAP
[2020-11-29] MEDS: FUROSEMIDE 40MG/4ML VIAL IVP SCH ×2 (08:43→16:40)
[2020-11-29] MEDS ORDERED: POTASSIUM CHLORIDE 20MEQ TABLET SR PO SCH (10:30)
[2020-11-29] MEDS: ENOXAPARIN 30MG/0.3ML SYR SUBCUT SCH (11:36)
[2020-11-29] MEDS ORDERED: POTASSIUM CHLORIDE INJ 40 MEQ in DEXT 5% WATER 250 ML IV SCH (13:00)
[2020-11-29] MEDS ORDERED: HALOPERIDOL LACTATE 5MG/ML VIAL IM PRN (18:45)
[2020-11-29] MEDS: AMLODIPINE 2.5MG TABLET PO SCH (21:36)
[2020-11-29] MEDS: SILDENAFIL CITRATE 20MG TABLET PO SCH (21:37)
[2020-11-30] VITALS (13 sets, daily range): BP systolic 121–157; BP diastolic 76–97
[2020-11-30] MEDS: LORAZEPAM 2MG/ML CPJ IV PRN (00:36)
[2020-11-30] MEDS: SILDENAFIL CITRATE 20MG TABLET PO SCH ×3 (06:11→21:29)
[2020-11-30] MEDS: IPRATROPIUM/ALBUTEROL 0.5-3(2.5)MG/3ML NEB HHN SCH ×3 (08:00→20:17)
[2020-11-30 08:23] LABS: BG BASE EXCESS 8.7 mmol/L (-2.0-2.0); BG CARBOXYHEMOGLOBIN 0.4 % (0.5-1.5); BG DEOXYHEMOGLOBIN 6.7 % (0.0-5.0); BG HCO3 ACT 32.9 mmol/L (22.0-26.0); BG METHEMOGLOBIN 0.5 % (0.0-1.5); BG OXYGEN SATURATION 93.2 % (92.0-98.5); BG OXYHEMOGLOBIN 92.4 % (94.0-97.0); BG PCO2 43.8 mmHg (35.0-45.0); BG PH 7.493 (7.350-7.450); BG PO2 66.6 mmHg (75.0-100.0); BG SAMPLE SITE RIGHT BRACHIAL; BG TOTAL HEMOGLOBIN 10.2 g/dL (12.0-18.0); BG VENT MODE MASK - BIPAP
[2020-11-30] MEDS: AMLODIPINE 2.5MG TABLET PO SCH ×2 (08:58→21:29)
[2020-11-30] MEDS: FUROSEMIDE 40MG/4ML VIAL IVP SCH ×2 (08:58→17:32)
[2020-11-30] MEDS: LOSARTAN POTASSIUM 50 MG TABLET PO SCH (11:07)
[2020-11-30] MEDS: ENOXAPARIN 30MG/0.3ML SYR SUBCUT SCH (11:07)
[2020-12-01] VITALS (12 sets, daily range): BP systolic 97–133; BP diastolic 58–88
[2020-12-01] MEDS: IPRATROPIUM/ALBUTEROL 0.5-3(2.5)MG/3ML NEB HHN SCH ×4 (01:56→21:59)
[2020-12-01] MEDS: SILDENAFIL CITRATE 20MG TABLET PO SCH ×3 (06:02→21:22)
[2020-12-01 08:11] LABS: BASOPHILS % 0.6 % (0.0-2.0); EOSINOPHILS % 1.4 % (0.0-5.0); HEMATOCRIT. 33.4 % (36.0-48.0); HEMOGLOBIN. 10.7 g/dL (12.0-16.0); LYMPHOCYTES % 18.9 % (20.0-50.0); MEAN CORPUSCULAR HEMOGLOBIN 25.8 pg (28.0-32.0); MEAN CORPUSCULAR VOLUME 80.5 fL (81.0-99.0); MEAN PLATELET VOLUME 7.9 fl (7.4-10.4); MONOCYTES % 8.1 % (2.0-8.0); PLATELET 205 x1000/uL (130-400); RED BLOOD CELL COUNT 4.16 mill/uL (4.2-5.4); RED CELL DISTRIBUTION WIDTH 20.4 % (11.6-14.6)
[2020-12-01 08:16] LABS: CHLORIDE 95 mEq/L (98-107)
[2020-12-01] MEDS: LOSARTAN POTASSIUM 50 MG TABLET PO SCH (09:12)
[2020-12-01] MEDS: FUROSEMIDE 40MG/4ML VIAL IVP SCH ×2 (09:12→17:34)
[2020-12-01] MEDS: AMLODIPINE 2.5MG TABLET PO SCH ×2 (09:14→21:00)
[2020-12-01] MEDS ORDERED: POTASSIUM CHLORIDE 20MEQ/PACKET PO NR (10:00)
[2020-12-01] MEDS: MAGNESIUM OXIDE 400MG TABLET PO SCH (10:47)
[2020-12-01] MEDS: ENOXAPARIN 30MG/0.3ML SYR SUBCUT SCH (10:50)
[2020-12-02] VITALS (11 sets, daily range): BP systolic 101–138; BP diastolic 53–96
[2020-12-02] MEDS: IPRATROPIUM/ALBUTEROL 0.5-3(2.5)MG/3ML NEB HHN SCH ×4 (02:48→22:03)
[2020-12-02] MEDS: SILDENAFIL CITRATE 20MG TABLET PO SCH ×3 (05:52→21:26)
[2020-12-02] MEDS: LOSARTAN POTASSIUM 50 MG TABLET PO SCH (09:09)
[2020-12-02] MEDS: FUROSEMIDE 40MG/4ML VIAL IVP SCH ×2 (09:09→18:19)
[2020-12-02] MEDS: METOLAZONE 2.5MG TABLET PO SCH (09:10)
[2020-12-02] MEDS: AMLODIPINE 2.5MG TABLET PO SCH ×2 (09:10→21:00)
[2020-12-02] MEDS: MAGNESIUM OXIDE 400MG TABLET PO SCH (09:10)
[2020-12-02 09:21] LABS: BASOPHILS % 0.5 % (0.0-2.0); EOSINOPHILS % 1.9 % (0.0-5.0); HEMATOCRIT. 31.8 % (36.0-48.0); HEMOGLOBIN. 10.3 g/dL (12.0-16.0); LYMPHOCYTES % 25.3 % (20.0-50.0); MEAN CORPUSCULAR HEMOGLOBIN 25.8 pg (28.0-32.0); MEAN CORPUSCULAR VOLUME 79.9 fL (81.0-99.0); MEAN PLATELET VOLUME 7.8 fl (7.4-10.4); MONOCYTES % 9.9 % (2.0-8.0); NEUTROPHILS % 62.4 % (40.0-76.0); PLATELET 189 x1000/uL (130-400); RED BLOOD CELL COUNT 3.98 mill/uL (4.2-5.4); RED CELL DISTRIBUTION WIDTH 20.4 % (11.6-14.6)
[2020-12-02 09:25] LABS: CHLORIDE 99 mEq/L (98-107)
[2020-12-02] MEDS ORDERED: POTASSIUM CHLORIDE 20MEQ/PACKET PO NR ×2 (10:30→17:00)
[2020-12-02] MEDS: ENOXAPARIN 30MG/0.3ML SYR SUBCUT SCH (12:38)
[2020-12-03] VITALS (12 sets, daily range): BP systolic 107–134; BP diastolic 60–90
[2020-12-03] MEDS: IPRATROPIUM/ALBUTEROL 0.5-3(2.5)MG/3ML NEB HHN SCH ×4 (01:54→21:59)
[2020-12-03] MEDS: SILDENAFIL CITRATE 20MG TABLET PO SCH ×3 (06:34→22:18)
[2020-12-03 07:48] LABS: BASOPHILS % 0.9 % (0.0-2.0); EOSINOPHILS % 1.8 % (0.0-5.0); HEMATOCRIT. 34.2 % (36.0-48.0); MEAN CORPUSCULAR HEMOGLOBIN 25.7 pg (28.0-32.0); MEAN CORPUSCULAR VOLUME 80.3 fL (81.0-99.0); MEAN PLATELET VOLUME 8.1 fl (7.4-10.4); MONOCYTES % 10.5 % (2.0-8.0); NEUTROPHILS % 54.8 % (40.0-76.0); PLATELET 165 x1000/uL (130-400); RED BLOOD CELL COUNT 4.27 mill/uL (4.2-5.4); RED CELL DISTRIBUTION WIDTH 19.8 % (11.6-14.6)
[2020-12-03] MEDS: FUROSEMIDE 40MG/4ML VIAL IVP SCH ×2 (08:43→16:40)
[2020-12-03] MEDS: AMLODIPINE 2.5MG TABLET PO SCH ×2 (08:43→22:18)
[2020-12-03] MEDS: LOSARTAN POTASSIUM 50 MG TABLET PO SCH (08:43)
[2020-12-03] MEDS: METOLAZONE 2.5MG TABLET PO SCH (08:44)
[2020-12-03] MEDS: MAGNESIUM OXIDE 400MG TABLET PO SCH (08:48)
[2020-12-03 09:20] LABS: BG BASE EXCESS 8.4 mmol/L (-2.0-2.0); BG CARBOXYHEMOGLOBIN 0.2 % (0.5-1.5); BG DEOXYHEMOGLOBIN 12.8 % (0.0-5.0); BG FRACTION INSPIRED OXYGEN 32; BG HCO3 ACT 33.7 mmol/L (22.0-26.0); BG METHEMOGLOBIN 0.3 % (0.0-1.5); BG OXYGEN SATURATION 87.1 % (92.0-98.5); BG OXYHEMOGLOBIN 86.7 % (94.0-97.0); BG PCO2 50.1 mmHg (35.0-45.0); BG PH 7.446 (7.350-7.450); BG PO2 55.1 mmHg (75.0-100.0); BG SAMPLE SITE RIGHT BRACHIAL; BG TOTAL HEMOGLOBIN 11.6 g/dL (12.0-18.0); BG VENT MODE NASAL CANNULA
[2020-12-03] MEDS: ENOXAPARIN 30MG/0.3ML SYR SUBCUT SCH (11:21)
[2020-12-04] VITALS (11 sets, daily range): BP systolic 99–151; BP diastolic 39–91
[2020-12-04] MEDS: IPRATROPIUM/ALBUTEROL 0.5-3(2.5)MG/3ML NEB HHN SCH ×3 (02:51→14:59)
[2020-12-04] MEDS: SILDENAFIL CITRATE 20MG TABLET PO SCH ×2 (05:38→14:00)
[2020-12-04] MEDS: FUROSEMIDE 40MG/4ML VIAL IVP SCH ×2 (08:53→17:00)
[2020-12-04] MEDS: METOLAZONE 2.5MG TABLET PO SCH (08:53)
[2020-12-04] MEDS: AMLODIPINE 2.5MG TABLET PO SCH (08:53)
[2020-12-04] MEDS: LOSARTAN POTASSIUM 50 MG TABLET PO SCH (08:53)
[2020-12-04] MEDS: MAGNESIUM OXIDE 400MG TABLET PO SCH (08:53)
[2020-12-04] MEDS ORDERED: LOSA50TA3 PO (09:53)
[2020-12-04] MEDS ORDERED: AMLO5TAB88 MT (09:53)
[2020-12-04 10:53] LABS: BASOPHILS % 0.7 % (0.0-2.0); EOSINOPHILS % 3.2 % (0.0-5.0); HEMATOCRIT. 36.6 % (36.0-48.0); HEMOGLOBIN. 11.6 g/dL (12.0-16.0); LYMPHOCYTES % 30.3 % (20.0-50.0); MEAN CORPUSCULAR HEMOGLOBIN 25.6 pg (28.0-32.0); MEAN CORPUSCULAR VOLUME 80.4 fL (81.0-99.0); NEUTROPHILS % 55.8 % (40.0-76.0); PLATELET 198 x1000/uL (130-400); RED BLOOD CELL COUNT 4.55 mill/uL (4.2-5.4); RED CELL DISTRIBUTION WIDTH 20.4 % (11.6-14.6)
[2020-12-04 11:16] LABS: CHLORIDE 96 mEq/L (98-107)
[2020-12-04] MEDS: ENOXAPARIN 30MG/0.3ML SYR SUBCUT SCH (12:39)
== END 2020-12-04 19:54 | disposition home health service (06) | DRG 291 ==
LOC: ER 12:11 → EDBD 12:11 → 3WST 15:54 → ENRESERV 20:38
PROVIDERS: ADMIT Internal Medicine; ATTEND Internal Medicine
PROC: 5A09457 Assistance with Respiratory Ventilation, 24-96 Consecutive Hours, Continuous Positive Airway Pressure (ICD-10-PCS; principal; 2020-11-29)
PROC: 5A09357 Assistance with Respiratory Ventilation, Less than 24 Consecutive Hours, Continuous Positive Airway Pressure (ICD-10-PCS; 2020-12-02)
PROC: 5A09357 Assistance with Respiratory Ventilation, Less than 24 Consecutive Hours, Continuous Positive Airway Pressure (ICD-10-PCS; 2020-12-03)
DX: I11.0 Hypertensive heart disease with heart failure (principal); J96.01 Acute respiratory failure with hypoxia; G93.41 Metabolic encephalopathy; J96.02 Acute respiratory failure with hypercapnia; I48.20 Chronic atrial fibrillation, unspecified; E87.2 Acidosis; I50.33 Acute on chronic diastolic (congestive) heart failure; K59.00 Constipation, unspecified; N28.1 Cyst of kidney, acquired; J44.9 Chronic obstructive pulmonary disease, unspecified; I48.0 Paroxysmal atrial fibrillation; I27.29 Other secondary pulmonary hypertension; I27.81 Cor pulmonale (chronic); D64.9 Anemia, unspecified; F03.90 Unspecified dementia, unspecified severity, without behavioral disturbance, psychotic disturbance, mood disturbance, and anxiety; I07.1 Rheumatic tricuspid insufficiency; E11.9 Type 2 diabetes mellitus without complications; G40.909 Epilepsy, unspecified, not intractable, without status epilepticus; E87.6 Hypokalemia; E78.5 Hyperlipidemia, unspecified; Z86.73 Personal history of transient ischemic attack (TIA), and cerebral infarction without residual deficits; Z99.81 Dependence on supplemental oxygen; Z79.51 Long term (current) use of inhaled steroids; Z88.8 Allergy status to other drugs, medicaments and biological substances; Z79.899 Other long term (current) drug therapy
CPT/HCPCS: 36415; 36600; 71045; 71275; 80048; 80053; 81003; 82375; 82805; 82962; 83605; 83735; 83880; 84100; 84145; 84484; 85025; 85379; 87077; 87426; 93005; 94640; 94660; 97116; 97162; 99291; J1650; J1940; J2060; J3480; J7060; Q9967; U0003; U0005; A4315